=== PATIENT | male | born 1965 | race Caucasian/White ===

== ENCOUNTER → 2017-04-06 | Outpatient (CLI) | payer BC ==
--- NOTE | 2017-04-06 20:07 | CT ---
EXAMINATION TYPE: CT abdomen pelvis wo con DATE OF EXAM: 04/06/2017 COMPARISON: NONE HISTORY: Right sided flank pain CT DLP: 683.3 mGycm Examination of the solid and hollow viscera is limited given the lack of contrast. FINDINGS: LUNG BASES: No evidence for nodule. No evidence for infiltrate. LIVER/GB: Cholecystectomy clips are in place. No space-occupying hepatic lesion. PANCREAS: No pancreatic mass identified. No inflammatory process seen. SPLEEN: No evidence for splenomegaly. No intrasplenic lesions seen. ADRENALS: No adrenal nodules identified. No evidence for thickening. KIDNEYS: No evidence for renal mass. No nephrolithiasis. No hydronephrosis. BOWEL: Appendix has a normal appearance. No evidence of bowel obstruction. No inflammatory process. Lymph nodes: No evidence for adenopathy greater than 1 cm. Abdominal aorta: Atheromatous changes seen. No evidence for aneurysm. Genital organs: No significant abnormality. Other: No significant abnormality. IMPRESSION: NO ACUTE PROCESS IDENTIFIED.
== END | disposition home or self-care (01) ==
LOC: RADCTMAIN 19:35
PROVIDERS: ATTEND Family Medicine
DX: R10.9 Unspecified abdominal pain (principal)
CPT/HCPCS: 74176

== ENCOUNTER 2021-06-05 11:16 | Emergency (ER) | payer BC ==
[2021-06-05] MEDS ORDERED: IBUPROFEN 600 MG TAB PO STA (12:35)
[2021-06-05] MEDS ORDERED: ACETAMINOPHEN TAB 500 MG TAB PO STA (12:35)
[2021-06-05] MEDS ORDERED: ONDANSETRON 4 MG/2 ML VIAL IVP STA (12:35)
[2021-06-05] MEDS ORDERED: SODIUM CHLORIDE 0.9% 1,000 ML IV STA (12:35)
--- NOTE | 2021-06-05 12:59 | XR ---
EXAMINATION TYPE: XR chest 1V portable DATE OF EXAM: 06/05/2021 COMPARISON: None INDICATION: Fever, cough TECHNIQUE: Frontal and lateral views of the chest are obtained. FINDINGS: The heart size is normal. The pulmonary vasculature is normal. Mild infiltrates at the left base. Some scattered infiltrates in the left suprahilar region. IMPRESSION: 1. Scattered bilateral infiltrates. Correlate for atelectasis and atypical pneumonia
[2021-06-05] MEDS ORDERED: BAMLANIVIMAB (EUA) 700 MG, ETESEVIMAB (EUA) 1,400 MG in SODIUM CHLORIDE 0.9% 50 ML IVPB ONE (13:00)
[2021-06-05] MEDS ORDERED: SODIUM CHLORIDE 0.9% 50 ML IVPB ONE (13:30)
--- NOTE | 2021-06-05 13:37 | ED ---
URI HPI - General Chief Complaint: Upper Respiratory Infection Stated Complaint: Fever,Weakness Time Seen by Provider: 06/05/21 11:58 Source: patient, RN notes reviewed Mode of arrival: ambulatory Limitations: no limitations - History of Present Illness Initial Comments: Patient is a 56-year-old male presenting to the emergency Department with complaints of viral type symptoms over the past week. He states about 1 week ago started having body aches and was very fatigued. He states he's been sleeping a lot over the past week, has a productive cough, some mild nausea and some mild shortness of breath. He denies history of asthma or COPD, he is a former smoker. He has been having fevers on and off over the past several days as well, he has not been taking Tylenol or Motrin. He denies any abdominal pain, no chest pains. He states his appetite has been low. He denies any further complaints. He did arrive febrile 102.1, pulse is 104, rest of vitals normal. - Related Data Home Medications Medication Instructions Recorded Confirmed Meloxicam [Mobic] 15 mg PO DAILY PRN 06/05/21 06/05/21 Previous Rx's Medication Instructions Recorded Albuterol Inhaler [Ventolin Hfa 1 puff INHALATION RT-TID PRN #8 gm 06/05/21 Inhaler] Dexamethasone [Decadron] 6 mg PO DAILY 7 Days #7 tablet 06/05/21 Allergies Allergy/AdvReac Type Severity Reaction Status Date / Time No Known Allergies Allergy Verified 06/05/21 13:02 Review of Systems ROS Statement: Those systems with pertinent positive or pertinent negative responses have been documented in the HPI. ROS Other: All systems not noted in ROS Statement are negative. Past Medical History Past Medical History: No Reported History History of Any Multi-Drug Resistant Organisms: None Reported Past Surgical History: Cholecystectomy Past Psychological History: No Psychological Hx Reported Smoking Status: Former smoker Past Alcohol Use History: None Reported Past Drug Use History: None Reported General Exam - General Exam Comments Initial Comments: GENERAL: Patient is well-developed and well-nourished. Patient is nontoxic and in no acute distress. HEAD: Atraumatic, normocephalic. EYES: Pupils equal round and reactive to light, extraocular movements intact, sclera anicteric, conjunctiva are normal. Eyelids were unremarkable. ENT: TMs normal, nares patent, oropharynx clear without exudates. Moist mucous membranes. NECK: Normal range of motion, supple without lymphadenopathy or JVD. LUNGS: Unlabored respirations. Breath sounds clear to auscultation bilaterally and equal. No wheezes rales or rhonchi. HEART: Regular rate and rhythm without murmurs, rubs or gallops. ABDOMEN: Soft, nontender, normoactive bowel sounds. No guarding, no rebound. No masses appreciated. MUSCULOSKELETAL: Normal extremities with adequate strength and normal range of motion, no pitting or edema. No clubbing or cyanosis. NEUROLOGICAL: Patient is alert and oriented x 3. SKIN: Warm, Dry, normal turgor, no rashes or lesions noted. Limitations: no limitations Course Vital Signs 06/05/21 06/05/21 11:49 14:58 Temperature 102.1 F H 99.9 F H Pulse Rate 104 H 89 Respiratory 16 18 Rate Blood Pressure 139/80 120/82 O2 Sat by Pulse 95 99 Oximetry Medical Decision Making - Medical Decision Making Patient is a 56-year-old male presenting with viral type symptoms over the past week. He did arrive febrile, slightly tachycardia. His rapid Covid is positive. Patient did agree to monoclonal antibodies. Also gave him some Tylenol and Motrin, some fluids while in the ER. Chest x-ray showed scattered bilateral infiltrates. Patient does report improvement in his symptoms, his vital signs have improved. He is stable for discharge. I'll give him a p rescription for some steroids and albuterol inhaler. He is agreeable to this plan of care. Return parameters were discussed with him and he verbalized understanding. Case discussed with Dr. Mccoy. - Lab Data Lab Results 06/05/21 Range/Units 11:55 Coronavirus (PCR) Detected A (Not Detectd) Disposition Clinical Impression: COVID-19 Disposition: HOME SELF-CARE Condition: Stable Instructions (If sedation given, give patient instructions): Coronavirus Disease 2019 (COVID-19) Additional Instructions: Please return to the Emergency Department if symptoms worsen or any other concerns. Take steroids as prescribed, use inhaler for any shortness of breath or coughing events. Alternate between Tylenol and Motrin for fever control, body aches. Increase your fluid intake. Follow-up with your primary care as needed. Prescriptions: Dexamethasone [Decadron] 6 mg PO DAILY 7 Days #7 tablet Albuterol Inhaler [Ventolin Hfa Inhaler] 1 puff INHALATION RT-TID PRN #8 gm PRN Reason: Shortness Of Breath Is patient prescribed a controlled substance at d/c from ED?: No Referrals: Nonstaff,Physician [Primary Care Provider] - 1-2 days Time of Disposition: 14:30
[2021-06-05 14:59] VITALS: BP 120/82; PULSE 89; RESP 18; TEMP 99.9
== END 2021-06-05 14:59 | disposition home or self-care (01) ==
LOC: EC 11:16
DX: U07.1 COVID-19 (principal); Z87.891 Personal history of nicotine dependence
CPT/HCPCS: 99285 ×2; 96365; 96375 ×2; 96361 ×2; 87635; 71045; M0243; J2405; J3490